=== PATIENT | female | born 1980 | race Caucasian/White ===

== ENCOUNTER 2021-05-13 19:57 | Emergency (ER) | payer BC ==
[~2021-05-13] VITALS: Ht 165.1 cm; Wt 82.2 kg
[2021-05-13 20:08] VITALS: BP 144/88
== END 2021-05-13 21:04 | disposition left against medical advice (07) ==
LOC: ER 19:57
DX: R10.9 Unspecified abdominal pain (principal); Z53.21 Procedure and treatment not carried out due to patient leaving prior to being seen by health care provider